=== PATIENT | male | born 1945 | race Caucasian/White ===

== ENCOUNTER 2016-09-02 02:55 | Inpatient (IN) | payer MEDICARE, OTHER ==
[2016-09-02] MEDS ORDERED: FLONASE ALLERG9.9 ML (03:51)
[2016-09-02] MEDS ORDERED: MAG-G27 MG (04:13)
[2016-09-02] MEDS ORDERED: MULTIVITAMINS1 EAC7 PO (04:15)
--- NOTE | 2016-09-02 14:23 | NUR ---
VIRTUAL CARE NOTE: CHECKED IN ON PT. HE IS ASLEEP. HE DID HAVE A PROCEDURE THIS MORNING REQUIRING ANESTHESIA. IS CURRENTLY STILL CONNECTED TO FREQUENT VITAL SIGNS, IT APPEARS. DID NOT DISTURB PT AT THIS TIME. WILL CONTINUE TO MONITOR. ELECTRONIC CHART REVIEWED.
--- NOTE | 2016-09-02 21:48 | NUR ---
VIRTUAL CARE NOTE: ASSESSMENT DEFERRED. PT. SLEEPING.
--- NOTE | 2016-09-02 22:50 | NUR ---
VIRTUAL CARE NOTES: PT. SLEEPING ASSESSMENT DEFERRED.
[2016-09-03 05:16] LABS: BASO % 0.1 % (0-2); EOS % 0.6 % (0-7); EOSINOPHIL ABSOLUTE COUNT 0.1 tho/cmm (0.0-0.7); HCT-HEMATOCRIT 30.8 % (36.0-53.5); HGB-HEMOGLOBIN 10.5 gm/dl (13.5-17.0); IMMATURE GRANULOCYTES ABSOLUTE 0.01 tho/cmm (0-0.03); IMMATURE GRANULOCYTES PERCENT 0.1 % (0-0.3); LYMPH % 8.2 % (20-45); LYMPH ABSOLUTE COUNT 0.8 tho/cmm (0.8-4.5); MCH (MEAN CORPUSCULAR HGB) 28.2 pg (28.0-32.0); MCHC MEAN CORPUSCULAR HGB CONC 34.1 % (32.0-36.0); MCV (MEAN CELL VOLUME) 82.6 fl (82.0-96.0); MEAN PLATELET VOLUME 10.5 cmc (9.4-12.4); MONO % 7.3 % (0-12); MONOCYTE ABSOLUTE COUNT 0.7 tho/cmm (0.0-1.2); NEUTROPHIL ABSOLUTE COUNT 8.4 tho/cmm (1.6-8.0); NEUTROPHIL-AUTOMATED 8.4 tho/cmm (1.6-8.0); NEUTROPHILS % 83.7 % (40-80); PLATELET COUNT 207 tho/cmm (150-450); RED BLOOD COUNT 3.73 mil/cmm (4.40-5.70); RED CELL DISTRIBUTION WIDTH 15.3 % (12.4-16.4)
== END 2016-09-03 11:30 | DRG 920 ==
LOC: 5WD 02:55 → ORW 06:03 → PACU 06:45 → 5WD 08:05
PROVIDERS: ADMIT Colon & Rectal Surgery
PROC: 0W3P8ZZ Control Bleeding in Gastrointestinal Tract, Via Natural or Artificial Opening Endoscopic (ICD-10-PCS; principal; 2016-09-02)
PROC: 30233N1 Transfusion of Nonautologous Red Blood Cells into Peripheral Vein, Percutaneous Approach (ICD-10-PCS; 2016-09-02)
DX: K91.840 Postprocedural hemorrhage of a digestive system organ or structure following a digestive system procedure (principal); D62 Acute posthemorrhagic anemia; Z87.898 Personal history of other specified conditions
CPT/HCPCS: J3010; P9016